=== PATIENT | female | born 1950 | race Caucasian/White ===

== ENCOUNTER 2019-11-15 15:05 | Emergency (ER) | payer MEDICARE, OTHER ==
[2019-11-15 15:26] VITALS: BP 173/82; PULSE 87
[2019-11-15] MEDS ORDERED: Triamcinolone Acetonide 40 MG/ML 1 ML MDV INJECT PRN (15:41)
[2019-11-15] MEDS ORDERED: Bupivacaine 0.5% 10 ML SDV INJECT ONE (15:42)
--- NOTE | 2019-11-15 15:53 | EDM.PDOC ---
ED HPI GENERAL MEDICAL PROBLEM - General Chief Complaint: Lower Extremity Injury/Pain Stated Complaint: LEFT KNEE PAIN Time Seen by Provider: 11/15/19 15:25 Source of Information: Reports: Patient History Limitations: Reports: No Limitations - History of Present Illness INITIAL COMMENTS - FREE TEXT/NARRATIVE: 69-year-old female with chronic knee arthritis, had a total knee replacement done earlier with good results, and was actually scheduled for a knee surgery on the left side prior to the pandemic coronavirus issue. Instead she came home from [place], but now is having significant inflammation and pain in her left knee and needs a steroid shot. She has had these with good results in the past. Her insurance will not pay for it unless she comes to the emergency room. 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 Other Musculoskeletal History: borderline Psychiatric History: Reports: Anxiety - Past Surgical History Other GI Surgeries/Procedures: Musculoskeletal Surgical History: Reports: Knee Replacement Other Musculoskeletal Surgeries/Procedures:: hand surgery Social & Family History - Tobacco Use Smoking Status *Q: Never Smoker - Caffeine Use Caffeine Use: Reports: Coffee, Tea - Recreational Drug Use Recreational Drug Use: No - Living Situation & Occupation Living situation: Reports: Review of Systems - Review of Systems Review Of Systems: See Below Constitutional: Denies: Fever Respiratory: Denies: Shortness of Breath Cardiovascular: Denies: Chest Pain GI/Abdominal: Denies: Abdominal Pain Skin: Denies: Bruising, Erythema Neurological: Reports: No Symptoms ED EXAM, GENERAL - Physical Exam Exam: See Below Exam Limited By: No Limitations General Appearance: Alert, No Apparent Distress Respiratory/Chest: No Respiratory Distress Cardiovascular: Regular Rate, Rhythm Extremities: Other (Exam is otherwise limited to the lower extremities. The knees are symmetric, the left knee has tenderness over the medial tibial plateau area but no effusion. No significant pain with movement of the patella. ) Psychiatric: Normal Affect, Normal Mood Skin Exam: Warm, Dry Course - Vital Signs Last Recorded V/S: Last Vital Signs Temp 96.2 F L 11/15/19 15:22 Pulse 87 11/15/19 15:22 Resp 16 11/15/19 15:22 BP 173/82 H 11/15/19 15:22 Pulse Ox 95 11/15/19 15:22 - Orders/Labs/Meds Meds: Medications Discontinued Medications Generic Name Dose Route Start Last Admin Trade Name Freq PRN Reason Stop Dose Admin Bupivacaine HCl 3 ml 11/15/19 15:42 11/15/19 16:08 Sensorcaine-Mpf 0.5% INJECT 11/15/19 15:43 3 ml ONETIME ONE Administration Triamcinolone Acetonide 40 mg 11/15/19 15:41 11/15/19 16:08 Kenalog-40 INJECT 40 mg ASDIRECTED PRN Administration Pain (moderate 4-6) - Re-Assessments/Exams Free Text/Narrative Re-Assessment/Exam: 11/15/19 17:02 Under sterile conditions, 40 mg of Kenalog and 3.5 cc of 0.5% Marcaine was injected into the left knee from the medial aspect. After the procedure she was able to ambulate without pain. I gave her information to see Dr. Wilkes to discuss knee surgery in the future. Departure - Departure Time of Disposition: 16:12 Disposition: Home, Self-Care 01 Clinical Impression: Osteoarthritis of left knee Qualifiers: Osteoarthritis type: primary Qualified Code(s): M17.12 - Unilateral primary osteoarthritis, left knee - Discharge Information Instructions: Arthritis, [id number] Referrals: PCP,None [Primary Care Provider] - Forms: ED Department Discharge Care Plan Goals: Continue any current medications as prescribed, increase activity as tolerated and return anytime if worsening or concerns. Consider discussing a total knee replacement with Dr. Wilkes this summer. Sepsis Event Note - Evaluation Sepsis Screening Result: No Definite Risk - Focused Exam Vital Signs: Vital Signs Temp Pulse Resp BP Pulse Ox 11/15/19 15:22 96.2 F L 87 16 173/82 H 95 Date Exam was Performed: 11/15/19 Time Exam was Performed: 16:59
== END 2019-11-15 16:12 | disposition home or self-care (01) ==
LOC: JP.ED 15:05
DX: M17.12 Unilateral primary osteoarthritis, left knee (principal); Z88.0 Allergy status to penicillin
CPT/HCPCS: 20610; 99282; 99283; J3301; J3490

== ENCOUNTER 2020-02-14 05:54 | Day surgery (SDC) | payer MEDICARE ==
[2020-02-14] MEDS ORDERED: ceFAZolin 2 GM in Premix Bag 1 BAG IV ONE (06:30)
[2020-02-14] MEDS ORDERED: Lactated Ringers 1,000 ML IV SCH (06:30)
[2020-02-14] MEDS ORDERED: Povidone-Iodine 10% Soln 118.25 ML Bottle ONE (06:41)
[2020-02-14] MEDS ORDERED: TRANEXAMIC ACID IV ONE (07:15)
[2020-02-14] MEDS ORDERED: SODIUM CHLORIDE 0.9% IV ONE (07:15)
[2020-02-14] MEDS: Nozin Nasal Sanitizer NASBOTH SCH ×2 (07:21→21:08)
[2020-02-14] MEDS ORDERED: Midazolam 1 MG/ML 2 ML SDV ONE (07:23)
[2020-02-14] MEDS ORDERED: fentaNYL 100 MCG/2 ML SDV ONE (07:23)
[2020-02-14] MEDS ORDERED: Propofol 200 MG/20 ML SDV ONE ×2 (07:23→08:48)
[2020-02-14] MEDS ORDERED: Lactated Ringers 1,000 ML ONE (08:56)
[2020-02-14] MEDS ORDERED: Morphine 2 MG/ML SYRINGE IVPUSH PRN (09:17)
[2020-02-14] MEDS ORDERED: Magnesium Hydroxide 400 MG/5 ML Susp 30 ML Cup PO PRN (09:17)
[2020-02-14] MEDS ORDERED: Acetaminophen/HYDROcodone 325-5 MG Tab PO PRN (09:17)
[2020-02-14] MEDS ORDERED: SODIUM CHLORIDE 0.9% IV PRN (09:30)
[2020-02-14] MEDS ORDERED: TRANEXAMIC ACID IV PRN (09:30)
[2020-02-14] MEDS ORDERED: Sodium Chloride 0.9% 1,000 ML IV SCH (09:30)
[2020-02-14] MEDS: Morphine 15 MG Tab.ER PO SCH ×2 (10:46→21:08)
[2020-02-14] MEDS: Ketorolac 30 MG/ML SDV IVPUSH SCH ×2 (10:47→18:20)
[2020-02-14] MEDS: Ondansetron 4 MG/2 ML SDV IVPUSH PRN ×2 (12:27→18:17)
--- NOTE | 2020-02-14 12:46 | CR ---
Knee 1V or 2V Lt CLINICAL HISTORY: Postop FINDINGS: Patient is status post the placement of a 3 component knee arthroplasty. This is a revision. Components appear well seated. Impression: Status post recent revision of total knee arthroplasty
[2020-02-14] MEDS: Acetaminophen/oxyCODONE 325-5 MG Tab PO PRN ×3 (13:50→23:40)
[2020-02-14] MEDS: ceFAZolin 1 GM in Premix Bag 1 BAG IV SCH ×2 (14:28→21:12)
[2020-02-14] MEDS ORDERED: ALPRAZolam 0.5 MG Tab PO ONE (14:30)
[2020-02-14] MEDS ORDERED: Simethicone 80 MG Tab.Chew PO PRN (14:47)
[2020-02-14] MEDS: Pantoprazole 40 MG Tab.CR PO SCH (15:40)
[2020-02-14] MEDS ORDERED: Pantoprazole 40 MG Tab.CR PO SCH (21:00)
[2020-02-14] MEDS: Docusate Sodium 100 MG Cap PO SCH (21:11)
[2020-02-14] MEDS: Aspirin 325 MG Tab.EC PO SCH (21:11)
[2020-02-15] MEDS: Ketorolac 30 MG/ML SDV IVPUSH SCH ×2 (03:39→10:10)
[2020-02-15] MEDS: ceFAZolin 1 GM in Premix Bag 1 BAG IV SCH (06:02)
[2020-02-15] MEDS: Acetaminophen/oxyCODONE 325-5 MG Tab PO PRN (06:06)
[2020-02-15 07:18] VITALS: BP 95/48; PULSE 78
[2020-02-15] MEDS: Aspirin 325 MG Tab.EC PO SCH (08:40)
[2020-02-15] MEDS: Nozin Nasal Sanitizer NASBOTH SCH (08:40)
[2020-02-15] MEDS: Docusate Sodium 100 MG Cap PO SCH (08:40)
[2020-02-15] MEDS: Pantoprazole 40 MG Tab.CR PO SCH (08:40)
[2020-02-15] MEDS ORDERED: Escitalopram 10 MG Tab PO SCH (09:00)
[2020-02-15] MEDS ORDERED: Lactobacillus Rhamnosus GG (Probiotic) Cap PO SCH (09:00)
[2020-02-15] MEDS ORDERED: ALPRAZolam 0.5 MG Tab PO SCH (09:00)
[2020-02-15] MEDS ORDERED: Aluminum Hydroxide/Magnesium Hydroxide/Simethicone Susp 30 ML Cup PO SCH (09:00)
[2020-02-15] MEDS: Morphine 15 MG Tab.ER PO SCH (10:10)
--- NOTE | 2020-02-15 12:56 | PCM.DCSUM1 ---
Discharge Summary - Hospital Course HPI Initial Comments: 69 year old female admitted for left TKA. History of bilateral knee osteoarthritis. Had right knee replaced previously and did well, now hindered by left knee pain. Diagnosis: Stroke: No Modified Wheaton Scale: No Symptoms at All Modified Wheaton Scale Score: 0 - Discharge Data Discharge Date: 02/15/20 Discharge Disposition: Home, W Home Health Agency 06 Condition: Good - Referral to Home Health Date of Face to Face Encounter: 02/15/20 Reason for Homebound Status: Left total knee arthroplasty Primary Care Physician: Radha Porras PA-C Skilled Need: Physical Therapy for ambulation and ROM - Patient Summary/Data Operative Procedure(s) Performed: left TKA Complications: None Consults: Consultations 02/14/20 09:17 Consult to Case Management/Salvage Winder [CONS] Routine Comment: Physician Instructions: Service(s) to be Consulted: Case Management Reason for Consult: Plan for Discharge OT Evaluation and Treatment [CONS] Routine Please Evaluate and Treat. OT Reason for Consult: ADL's Pending Discharge: Yes Discharge Disposition: Home w Home Health This query below is only for informational purposes and is not editable. PT Evaluation and Treatment [CONS] Routine Please Evaluate and Treat. PT Reason for Consult: Post op Ortho Surgery Special Instructions: Ambulation, ROM This query below is only for informational purposes and is not editable. PT Evaluation and Treatment [CONS] Routine Please Evaluate and Treat. PT Reason for Consult: Post op Ortho Surgery Knee Pending Discharge: Yes, 1- 2 days Special Instructions: Schedule first outpatient PT appointment in 3-5 day post discharge. This query below is only for informational purposes and is not editable. Hospital Course: Tolerated surgery very well. Had some nausea and gas pain post op, resolved after vomiting. Treated with Zofran and Simethicone, no further GI issues. Did very well with PT. Slept poorly last night but pain fairly well controlled this AM. Independent with transfers and ambulation. Dressing changed, no drainage. Plan home with Home Health for PT. ASA 81 mg BID for DVT. Follow up in 2 weeks. - Patient Instructions Diet: Usual Diet as Tolerated Activity: Apply Ice, As Tolerated, Full Weight Bearing Driving: Do Not Drive Showering/Bathing: Shower in AM Wound/Incision Care: Keep Operative Site/Wound Site Clean and Dry Notify Provider of: Fever, Increased Pain, Swelling and Redness, Drainage, Nausea and/or Vomiting Other/Special Instructions: Aspirin 81 mg po twice a day - Discharge Plan *PRESCRIPTION DRUG MONITORING PROGRAM REVIEWED*: No *COPY OF PRESCRIPTION DRUG MONITORING REPORT IN PATIENT XAVI: No Prescriptions/Med Rec: Docusate Sodium [Colace] 100 mg PO BID 14 Days #28 cap Meloxicam 15 mg PO DAILY #30 tablet polyethylene glycoL 3350 [Miralax] 17 gm PO DAILY #21 powd.pack Morphine [MS Contin] 15 mg PO Q12HR PRN 7 Days #14 tab.er PRN Reason: Pain (Severe 7-10) oxyCODONE HCl/Acetaminophen [Percocet 5-325 mg Tablet] 1 each PO Q4HR PRN #42 tablet PRN Reason: Pain (Moderate 4-6) Omeprazole Magnesium [Prilosec Otc] 20 mg PO DAILY #30 tablet. Ondansetron [Zofran ODT] 4 mg PO Q6H PRN #24 tab.dis PRN Reason: Nausea/Vomiting Home Medications: Home Meds ALPRAZolam [Alprazolam] 1 mg PO DAILY 01/11/20 [History] Alendronate Sodium [Fosamax] 70 mg PO .WEEKLY 02/10/20 [History] Cholecalciferol (Vitamin D3) [Vitamin D3] 1,000 unit PO DAILY 02/10/20 [History] Escitalopram Oxalate [Lexapro] 10 mg PO DAILY 02/10/20 [History] L. Acidophilus/Dig Enz Cmb 5 [Probiotic-Digestive Enzymes] 1 each PO DAILY 02/10/20 [History] Magnesium Carb/Aluminum Hydrox [Antacid Extra Strength Chw Tab] 1 each PO DAILY 02/10/20 [History] [place]-3/DHA/Epa/Fish Oil [[place]-3 Fish Oil 1,000 MG Sfgl] 1,000 mg PO DAILY 02/10/20 [History] Phytonadione [Vitamin K] 180 mcg PO DAILY 02/10/20 [History] Turmeric Root Extract [Turmeric] 500 mg PO DAILY 02/10/20 [History] Docusate Sodium [Colace] 100 mg PO BID 14 Days #28 cap 02/15/20 [Rx] Meloxicam 15 mg PO DAILY #30 tablet 02/15/20 [Rx] Morphine [MS Contin] 15 mg PO Q12HR PRN 7 Days #14 tab.er 02/15/20 [Rx] Omeprazole Magnesium [Prilosec Otc] 20 mg PO DAILY #30 tablet.dr 02/15/20 [Rx] Ondansetron [Zofran ODT] 4 mg PO Q6H PRN #24 tab.dis 02/15/20 [Rx] oxyCODONE HCl/Acetaminophen [Percocet 5-325 mg Tablet] 1 each PO Q4HR PRN #42 tablet 02/15/20 [Rx] polyethylene glycoL 3350 [Miralax] 17 gm PO DAILY #21 powd.pack 02/15/20 [Rx] Oxygen Therapy Mode: Room Air Referrals: Ed Wilkes MD [Physician] - 02/29/20 10:15 am (Please register 15 minutes early for your appointment. Please register at the ER desk.) - Discharge Summary/Plan Comment DC Time >30 min.: Yes - General Info Functional Status: Reports: Pain Controlled, Tolerating Diet, Ambulating, Urinating - Review of Systems General: Reports: No Symptoms HEENT: Reports: No Symptoms Pulmonary: Reports: No Symptoms Cardiovascular: Reports: No Symptoms Gastrointestinal: Reports: No Symptoms Genitourinary: Reports: No Symptoms Musculoskeletal: Reports: Leg Pain Skin: Reports: No Symptoms Neurological: Reports: No Symptoms Psychiatric: Reports: No Symptoms - Patient Data Vitals - Most Recent: Last Vital Signs Temp 36.6 C 02/15/20 07:18 Pulse 78 02/15/20 07:18 Resp 16 02/15/20 07:18 BP 95/48 L 02/15/20 07:18 Pulse Ox 90 L 02/15/20 07:18 Weight - Most Recent: 67.585 kg I&O - Last 24 hours: Intake & Output 02/14/20 02/15/20 02/15/20 22:59 06:59 14:59 Intake Total 947 1081 Output Total 1000 350 Balance -53 1081 -350 Lab Results - Last 24 hrs: Laboratory Results - last 24 hr 02/15/20 Range/Units 04:45 WBC 11.7 H (4.5-11.0) K/uL RBC 3.88 (3.30-5.50) M/uL Hgb 11.1 L (12.0-15.0) g/dL Hct 34.7 L (36.0-48.0) % MCV 89 (80-98) fL MCH 29 (27-31) pg MCHC 32 (32-36) % Plt Count 255 (150-400) K/uL Neut % (Auto) 82 H (36-66) % Lymph % (Auto) 10 L (24-44) % [place] % (Auto) 8 H (2-6) % Eos % (Auto) 0 L (2-4) % Baso % (Auto) 0 (0-1) % Med Orders - Current: Current Medications Hydrocodone Bitart/Acetaminophen ([place] 325-5 Mg) 2 tab PO Q4H PRN PRN Reason: Pain (mild 1-3) Al Hydroxide/Mg Hydroxide (Mag-Al Plus) 30 ml PO DAILY [facility] Last Admin: 02/15/20 08:40 Dose: 30 ml Documented by: Alendronate Sodium (Fosamax) 70 mg PO Q7D [facility] Alprazolam (Xanax) 1 mg PO DAILY [facility] Last Admin: 02/15/20 08:40 Dose: 1 mg Documented by: Aspirin (Ecotrin) 325 mg PO BID [facility] Last Admin: 02/15/20 08:40 Dose: 325 mg Documented by: Bandage/Support Products ( Nasal Hose Maker) 1 applic NASBOTH BID [facility] Last Admin: 02/15/20 08:40 Dose: 1 applic Documented by: Docusate Sodium (Colace) 100 mg PO BID [facility] Last Admin: 02/15/20 08:40 Dose: 100 mg Documented by: Escitalopram Oxalate (Lexapro) 10 mg PO DAILY [facility] Last Admin: 02/15/20 08:40 Dose: 10 mg Documented by: Sodium Chloride (Normal Saline) 1,000 mls @ 125 mls/hr IV ASDIRECTED [facility] Last Admin: 02/14/20 15:58 Dose: 125 mls/hr Documented by: Ketorolac Tromethamine (Toradol) 15 mg IVPUSH Q8H [facility] Stop: 02/16/20 02:01 Last Admin: 02/15/20 10:10 Dose: 15 mg Documented by: Lactobacillus Rhamnosus (Culturelle) 1 cap PO DAILY [facility] Last Admin: 02/15/20 08:40 Dose: 1 cap Documented by: Magnesium Hydroxide (Milk Of Magnesia) 30 ml PO BID PRN PRN Reason: Constipation Morphine Sulfate (Morphine) 2 mg IVPUSH Q1H PRN PRN Reason: Breakthrough Pain Morphine Sulfate (Ms Contin) 15 mg PO Q12H [facility] Last Admin: 02/15/20 10:10 Dose: Not Given Documented by: Ondansetron HCl (Zofran) 4 mg IVPUSH Q4H PRN PRN Reason: Nausea/Vomiting Last Admin: 02/14/20 18:17 Dose: 4 mg Documented by: Oxycodone/Acetaminophen (Percocet 325-5 Mg) 1 - 2 tab PO Q4H PRN PRN Reason: Pain Last Admin: 02/15/20 06:06 Dose: 2 tab Documented by: Pantoprazole Sodium (Protonix) 40 mg PO DAILY [facility] Last Admin: 02/15/20 08:40 Dose: 40 mg Documented by: Simethicone (Simethicone) 80 mg PO Q6H PRN PRN Reason: Gas Discontinued Medications Alprazolam (Xanax) 1 mg PO ONETIME ONE Stop: 02/14/20 14:31 Last Admin: 02/14/20 14:27 Dose: 1 mg Documented by: Fentanyl (Sublimaze) Confirm Administered Dose 100 mcg .ROUTE .STK-MED ONE Stop: 02/14/20 07:24 Cefazolin Sodium/Dextrose 2 gm (/ Premix) 50 mls @ 100 mls/hr IV ONETIME ONE Stop: 02/14/20 06:59 Last Admin: 02/14/20 07:38 Dose: 100 mls/hr Documented by: Lactated Ringer's (Ringers, Lactated) 1,000 mls @ 75 mls/hr IV ASDIRECTED [facility] Last Admin: 02/14/20 07:20 Dose: 75 mls/hr Documented by: Tranexamic Acid 670 mg/ Sodium (Chloride) 56.7 mls @ 226.8 mls/hr IV ONETIME ONE Stop: 02/14/20 07:29 Last Admin: 02/14/20 07:45 Dose: 226.8 mls/hr Documented by: Tranexamic Acid 670 mg/ Sodium (Chloride) 56.7 mls @ 226.8 mls/hr IV ASDIRECTED PRN PRN Reason: BLEEDING ISSUE Stop: 02/14/20 16:00 Lactated Ringer's (Ringers, Lactated) Confirm Administered Dose 1,000 mls @ as directed .ROUTE .STK-MED ONE Stop: 02/14/20 08:57 Cefazolin Sodium/Dextrose 1 gm (/ Premix) 50 mls @ 100 mls/hr IV Q8H [facility] Stop: 02/15/20 06:29 Last Admin: 02/15/20 06:02 Dose: 100 mls/hr Documented by: Midazolam HCl (Versed 1 Mg/Ml) Confirm Administered Dose 2 mg .ROUTE .STK-MED ONE Stop: 02/14/20 07:24 Pantoprazole Sodium (Protonix) 40 mg PO BEDTIME [facility] Povidone Iodine (Betadine 10% Soln) Confirm Administered Dose 1 ml .ROUTE .STK- MED ONE Stop: 02/14/20 06:42 Last Admin: 02/14/20 08:31 Dose: 30 ml Documented by: Propofol (Diprivan 20 Ml) Confirm Administered Dose 200 mg .ROUTE .STK-MED ONE Stop: 02/14/20 07:24 Propofol (Diprivan 20 Ml) Confirm Administered Dose 200 mg .ROUTE .STK-MED ONE Stop: 02/14/20 08:49 - Exam General: Reports: Alert, Oriented HEENT: Reports: Pupils Equal, Pupils Reactive, EOMI, Mucous Membr. Moist/[place]: Reports: Supple Lungs: Reports: Clear to Auscultation, Normal Respiratory Effort Cardiovascular: Reports: Regular Rate, Regular Rhythm GI/Abdominal Exam: Normal Bowel Sounds, Soft, Non-Tender, No Distention (Female) Exam: Deferred Rectal (Female) Exam: Deferred Back Exam: Reports: Normal Inspection Extremities: Joint Swelling, Limited Range of Motion Skin: Reports: Warm, Dry Wound/Incisions: Reports: Healing Well, No Drainage Neurological: Reports: No New Focal Deficit Psy/Mental Status: Reports: Alert, Normal Affect, Normal Mood
[2020-02-16] MEDS ORDERED: Alendronate 70 MG Tab PO SCH (07:30)
--- NOTE | 2020-02-22 10:18 | OR ---
DATE OF PROCEDURE: 02/14/2020 SURGEON: Ed Wilkes MD PREOPERATIVE DIAGNOSIS: Osteoarthritis, left knee. POSTOPERATIVE DIAGNOSIS: Osteoarthritis, left knee. PROCEDURE: Left total knee arthroplasty using [employer] Persona components with a size 5 femur, an E tibia, an 11 mm polyethylene, and a 32 mm patella. ANESTHESIA: Spinal with sedation. INDICATIONS: Joya is a very pleasant 69-year-old female with a history of progressive pain in her left knee for the past couple of years. She has failed conservative treatment. X-rays reveal joint space collapse and osteoarthritis. She now presents for a total knee arthroplasty. The risks, benefits, and potential complications of the procedure were discussed. DESCRIPTION OF PROCEDURE: After adequate anesthesia was obtained, the patient was placed supine with a tourniquet about the left upper thigh. The left leg was prepped and draped in a sterile fashion. The leg was exsanguinated and the tourniquet inflated to 300 mmHg pressure. A longitudinal incision was made over the anterior aspect of the knee and carried down to the subcutaneous tissues, and a medial parapatellar arthrotomy was performed. The articular surface of the patella was exposed and held with a clamp, and the posterior aspect of the patella was resected with an oscillating saw. The anterior horn of the medial meniscus and a portion of the fat pad were excised. The intramedullary canal of the femur was drilled. An intramedullary guide was placed. A distal femoral cutting jig was secured, and the distal femoral cut was then made. The guides were removed. Attention was turned to the tibia, where the extramedullary guide was utilized. This was aligned and secured, and the proximal tibia was cut with an oscillating saw. Bone fragment was removed, and the remaining medial and lateral menisci were excised. Attention was returned to the femur, which was sized to a #5 component. A 5 cutting jig was placed on the distal femur, and the remaining cuts were made, including an intercondylar notch cut for a posterior cruciate- sacrificing component. The tibia was then sized to an E. This was secured in place, and the remaining tibial preparation was completed. A 10 mm spacer was placed and showed some slight laxity, and the 11 mm akiko was then exchanged. This showed full extension and good balance in flexion and extension. The patella was resurfaced with a 32 mm button. The components were then removed. The knee was thoroughly irrigated with the pulse lavage. The bone surfaces were dried, and the components were cemented in place. Excess cement was removed, and the knee was held in full extension with the trial insert as the cement cured. It was again taken through a range of motion and found to have good balance in flexion and extension. The trial was removed, and the final polyethylene was tapped into position. The knee was irrigated with pulse lavage, followed by a dilute Betadine solution and a final lavage irrigation. The capsule was then closed with #2 Ethibond in an interrupted fashion. The skin was closed with 2-0 Vicryl and a running 3-0 Monocryl. Steri-Strips were applied. The patient tolerated the procedure well. There were no complications. A light compressive dressing was placed. She was taken from the operating room in stable condition. Ed Wilkes MD /[id number]
== END 2020-02-15 14:58 | disposition home health service (06) ==
LOC: JP.SDS 05:54 → JP.MS 09:17 → JP.SDS 02-15 14:58
PROVIDERS: ATTEND Specialist
DX: M17.0 Bilateral primary osteoarthritis of knee (principal); Z88.0 Allergy status to penicillin; Z11.59 Encounter for screening for other viral diseases; Z79.899 Other long term (current) drug therapy; Z96.651 Presence of right artificial knee joint
CPT/HCPCS: 27447; 36415; 73560; 85025; 86850; 86900; 86901; 97110; 97116; 97140; 97161; 97530; A9270; C1713; C1776; J0690; J1885; J2250; J2405; J2704; J3010; J7030; J7050; J7120; U0002